=== PATIENT | male | born 1965 | race American Indian/Alaskan Native ===

== ENCOUNTER 2017-12-27 20:04 | Emergency (ER) | payer MEDICAID ==
[2017-12-27 20:04] VITALS: BMI 28.1
[2017-12-27 20:12] VITALS: RESP 18; TEMP 97.7
--- NOTE | 2017-12-27 20:31 | ED PDOC ---
HPI: Psych/Substance Abuse Time Seen by Provider: 12/27/17 20:26 Chief Complaint (Nursing): Alcohol Ingestion Chief Complaint (Provider): etoh History Per: Patient, EMS Additional Complaint(s): 52 year old non-domiciled male presents to ED acutely intoxicated. Patient states he drinks daily. [place] Patient offers no acute complaints. Past Medical History Reviewed: Historical Data, Nursing Documentation, Vital Signs Vital Signs: Last Vital Signs Temp 97.7 F 12/27/17 20:09 Pulse 88 12/27/17 20:09 Resp 18 12/27/17 20:09 BP 134/82 12/27/17 20:09 Pulse Ox 96 12/27/17 20:09 - Medical History PMH: HTN - Family History Family History: States: No Known Family Hx - Living Arrangements Living Arrangements: Other (non-domiciled) - Social History Alcohol: > 2 Drinks/Day - Home Medications Home Medications: Ambulatory Orders Medication Instructions Recorded No Known Home Med 08/28/17 - Allergies Allergies/Adverse Reactions: Allergies Allergy/AdvReac Type Severity Reaction Status Date / Time FISH Allergy RASH Verified 12/27/17 20:09 seafood Allergy RASH Uncoded 12/27/17 20:09 Review of Systems ROS Statement: Except As Marked, All Systems Reviewed And Found Negative Psych: Positive for: Other (etoh) Physical Exam - Reviewed Nursing Documentation Reviewed: Yes Vital Signs Reviewed: Yes - Physical Exam Appears: Positive for: Well, Non-toxic, No Acute Distress Skin: Negative for: Rash Eye Exam: Positive for: Normal appearance Cardiovascular/Chest: Positive for: Regular Rate, Rhythm Respiratory: Positive for: Normal Breath Sounds Neurologic/Psych: Positive for: Alert, Other (intoxicated, alert, does not answer questions appropriately ) - ECG O2 Sat by Pulse Oximetry: 96 Pulse Ox Interpretation: Normal Medical Decision Making Medical Decision Makin52 year old intoxicated male Plan: 1:1 observation BAL Glucose POC BAL: 206 Fingerstick: 91 20:45 - Shortly after patient arrived he got up out of bed and tried to walk to bathroom. Patient almost fell and placed left knee against the ground. Patient was assisted back to bed by security and RN. He was placed under 1:1 bedside observation. 22:00 - patient is asleep, vital signs are stable, patient is arousable 23:45 - patient is asleep, vital signs are stable, arousable. Disposition - Clinical Impression Clinical Impression: Alcohol intoxication - Patient ED Disposition Is Patient to be Admitted: Transfer of Care - Disposition Disposition: Transfer of Care Disposition Time: 23:55 Condition: STABLE Forms: [facility] ([place]) Patient Signed Over To: Manpreet Barrios Handoff Comments: Signed out to RENAN Barrios pending sobriety and final disposition
--- NOTE | 2017-12-28 04:06 | ED PDOC ---
- ECG O2 Sat by Pulse Oximetry: 98 - Progress ED Course And Treament: 0000 Signed out to me pending sobriety. 0042 On my initial evaluation, pt. in no distress. Sleeping comfortably. 0332 No distress. Still sleeping comfortably. 0500 Gait steady, unassisted. Pt. requesting to be dc'd. Disposition - Clinical Impression Clinical Impression: Alcohol intoxication - POA Present On Arrival: None - Disposition Disposition: Routine/Home Disposition Time: 05:00 Condition: STABLE Instructions: Alcohol Abuse and Alcoholism (DC) Forms: [facility] ([place])
[2017-12-28 05:26] VITALS: BP 116/52; PULSE 84; O2SAT 100
== END 2017-12-28 05:30 | disposition home or self-care (01) ==
LOC: H.ER 20:04
DX: F10.129 Alcohol abuse with intoxication, unspecified (principal); I10 Essential (primary) hypertension